=== PATIENT | male | born 1970 | race Caucasian/White ===

== ENCOUNTER 2022-03-09 13:28 | Emergency (ER) | payer BC ==
[2022-03-09 14:14] LABS: HEMOGLOBIN 11.2 gm/dl (14.0-17.5); RED BLOOD COUNT 3.95 M/UL (4.20-5.50); WHITE BLOOD COUNT 7.1 K/UL (4.5-11.0)
== END 2022-03-09 15:27 | disposition home or self-care (01) ==
LOC: ER1 13:28
PROVIDERS: Family Medicine
DX: I10 Essential (primary) hypertension (principal); N28.9 Disorder of kidney and ureter, unspecified
CPT/HCPCS: 80053; 83735; 85025; 99283

== ENCOUNTER → 2022-03-10 | Outpatient (CLI) | payer BC | LOC: KOH-I 14:15 | DX: R79.89 Other specified abnormal findings of blood chemistry (principal) | CPT/HCPCS: 76775 ==